=== PATIENT | female | born 1990 | race Caucasian/White ===

== ENCOUNTER 2022-07-16 10:36 | Emergency (ER) | payer SELFPAY ==
[~2022-07-16] VITALS: Ht 170.2 cm; Wt 77.1 kg
--- NOTE | 2022-07-16 11:11 | NUR ---
Patient refusing all treatments at this time. Dr Celeste at bedside. Woo
[2022-07-16 11:13] VITALS: BP 150/90
== END 2022-07-16 11:13 | disposition home or self-care (01) ==
LOC: ER 10:54
DX: Z53.21 Procedure and treatment not carried out due to patient leaving prior to being seen by health care provider (principal); E11.65 Type 2 diabetes mellitus with hyperglycemia